=== PATIENT | male | born 1940 | race Two or more races ===

== ENCOUNTER 2018-01-17 11:41 | Outpatient (CLI) | payer OTHER ==
[~2018-01-17 11:41] MED LIST: ADVAIR 2501 DISK W/1; ASPIR 8181 MG; DILTIAZEM ER60 MG; LASIX20 MG; LIPITOR20 MG; NEURONTIN300 MG; NIASPAN500 MG; VASOTEC5 MG
== END 2018-01-17 11:51 | disposition home or self-care (01) ==
LOC: SONOGRAMA 11:41
DX: C73 Malignant neoplasm of thyroid gland (principal)

== ENCOUNTER 2020-12-04 07:53 | Outpatient (CLI) | payer OTHER | END 2020-12-04 08:07 | disposition home or self-care (01) | LOC: SONOGRAMA 07:53 | PROVIDERS: ATTEND Internal Medicine Gastroenterology | DX: R10.84 Generalized abdominal pain (principal) ==

== ENCOUNTER 2021-03-29 14:00 | Outpatient (CLI) | payer OTHER | END 2021-03-29 14:13 | disposition home or self-care (01) | LOC: RAD 14:00 | PROVIDERS: ATTEND Urology | DX: N20.0 Calculus of kidney (principal) ==

== ENCOUNTER 2021-11-12 08:00 | Outpatient (CLI) | payer OTHER | END 2021-11-12 08:30 | disposition home or self-care (01) | LOC: PPH VACUNA 08:00 | PROVIDERS: ATTEND Emergency Medicine Pediatric Emergency Medicine | DX: Z23 Encounter for immunization (principal) ==

== ENCOUNTER 2022-02-16 14:04 | Outpatient (CLI) | payer OTHER | END 2022-02-16 14:13 | disposition home or self-care (01) | LOC: SONOGRAMA 14:04 | PROVIDERS: ATTEND Internal Medicine Sports Medicine | DX: C73 Malignant neoplasm of thyroid gland (principal) ==

== ENCOUNTER 2022-04-28 12:20 | Outpatient (CLI) | payer OTHER | END 2022-04-28 12:30 | disposition home or self-care (01) | LOC: PPH VACUNA 12:20 | PROVIDERS: ATTEND Emergency Medicine Pediatric Emergency Medicine | DX: Z23 Encounter for immunization (principal) ==

== ENCOUNTER → 2023-05-23 | Outpatient (CLI) | payer OTHER | END | disposition home or self-care (01) | LOC: TOM 08:52 | PROVIDERS: ATTEND Emergency Medicine Pediatric Emergency Medicine | DX: K21.9 Gastro-esophageal reflux disease without esophagitis (principal) ==